=== PATIENT | female | born 1980 | race African-American/Black ===

== ENCOUNTER 2017-09-25 13:21 | Emergency (ER) | payer MEDICAID ==
[~2017-09-25] VITALS: Ht 154.9 cm; Wt 57.0 kg
[2017-09-25] MEDS ORDERED: ESCI10TA54 PO (13:32)
[2017-09-25 21:50] VITALS: BP 123/72
== END 2017-09-25 21:54 | disposition home or self-care (01) ==
LOC: ER 14:22
DX: R07.2 Precordial pain (principal); F41.9 Anxiety disorder, unspecified; R00.0 Tachycardia, unspecified; Z98.890 Other specified postprocedural states
CPT/HCPCS: 81025; 93005; 99283; Z7610